=== PATIENT | female | born 1980 | race Caucasian/White ===

== ENCOUNTER → 2017-08-05 | Outpatient (CLI) | payer BC ==
[~2017-08-05] MED LIST: IRON TABLETS325 MG PO; PRENATAL PLUS1 TA1 PO
--- NOTE | 2017-08-15 07:41 | RADIOLOGY REPORT PS360 ---
DIG MAMM-SCREEN [facility] W/CAD ORDERING PHYSICIAN : Chu Calvert MD PATIENT AGE: 37 years GENDER: Female COMPARISON: June 2014, 2014July 2016 HISTORY:No hormones no new complaints Family history. Mother with breast cancer premenopausal. Also paternal aunt; and paternal grandmother-postmenopausal. TECHNIQUE: Std CC & MLO images were obtained. R2 CAD reviewed. FINDINGS: Moderate breast density bilateral With mild subtle diffuse increased fibroglandular elements diffusely throughout both breasts- suspect most likely reflects phase of menstrual cycle, given there is no no history of exogenous hormones on history sheet. No suspicious dominant mass nor suspicious calcification. RIGHT BREAST: Minimal focal areas density at the central breast cc view & superior breast MLO view breast is similar but mildly accentuated today when compared to previous study. With these in view of the patient's family history would suggest a follow-up right mammogram in 4-6 months to confirm stable LEFT BREAST: Retroareolar region stable fibroglandular months lateral left breast. A few and barely evident scattered punctate calcifications upper-outer quadrant can be followed in one year. Stable minimal density. IMPRESSION: . . Subtle diffuse increased prominence of fibroglandular elements bilaterally most likely reflects phase of menstrual cycle, since no exogenous hormone history With this there is slight accentuation of 2 areas in the right breast which I believe merely reflects such; but would benefit from follow-up right mammogram in 4-6 months in this younger patient to better confirm stable . BI-RADS CATEGORY: 3_Probably Benign-Short Term F/U RECOMMENDED FOLLOWUP: 4M -6MONTH FOLLOW-UP right breast (A letter has been sent to the patient regarding results of the study.)
== END ==
LOC: RAD 09:48
DX: Z12.31 Encounter for screening mammogram for malignant neoplasm of breast (principal)
CPT/HCPCS: G0202